=== PATIENT | male | born 1980 | race Caucasian/White ===

== ENCOUNTER 2024-08-06 08:39 | Emergency (ER) | payer BC, SELFPAY ==
[2024-08-06 08:40] VITALS: BP 149/94; PULSE 76; RESP 17; TEMP 36.4; O2SAT 100
--- NOTE | 2024-08-06 08:45 | DI.RAD_ITS ---
Exam(s) XR THUMB RT EXAM: XR THUMB RT CLINICAL HISTORY: Laceration. TECHNIQUE: 2D digital imaging was performed of the right finger. Three views were obtained. PA/AP, oblique, and lateral views were obtained. COMPARISON: No exams were available for comparison FINDINGS: BONES: No acute fracture is present. No bony destructive lesion is seen. JOINTS: No dislocation present. SOFT TISSUE: No radiopaque foreign bodies or soft tissue gas is seen. IMPRESSION: No evidence of acute fracture or dislocation. DATA REPOSITORY: RADIATION DOSE DELIVERED:
[2024-08-06] MEDS: Lidocaine/Epinephri/Tetracaine Topical Gel 3 ML TP (08:54)
[2024-08-06] MEDS: Ibuprofen 600 MG TAB PO (08:54)
[2024-08-06] MEDS: Acetaminophen 500 MG TAB 1000 MG PO (08:54)
--- NOTE | 2024-08-06 09:15 | ED.GENADUL_ITS ---
Discharge Plan Disposition Patient Disposition: Home Discharge Details Clinical Impression: Laceration of right thumb Primary Care Provider: [facility] ED Provider: Yobani Graff Home Meds and New Rx's Prescriptions: Continued citalopram [Celexa] 10 mg tablet 10 mg PO DAILY Discharge Instructions Instructions: Laceration Repair With Stitches ED Additional Instructions: You were seen in the emergency department for your right thumb laceration laceration which was closed with sutures that will need to be removed in 7 to 10 days. As we discussed, please keep your wound clean, dry and covered. Please do not soak in a tub, swim or engage in any activities which could introduce dirt into your wound. You may return to the emergency department, go to urgent care or go to your primary care provider in 7 to 10 days to have your stitches removed. As we discussed if you develop any foul-smelling drainage fevers streaking signs of infection or have any other concerns please return to the emergency department. For your pain please take medications as follows: 1. Take acetaminophen (Tylenol), 1,000 mg (two 500 mg tabs) every 6 hours [2. Take ibuprofen (Advil), 400 mg every 6 hours.] Discharge Data Discharge Date/Time-TO BE ENTERED AT DEPARTURE: 08/06/24 10:12 HPI General Date/Time Provider Initiated Documentation: 08/06/24 08:46 . HPI Narrative: MDM This is a previously healthy 44-year-old afebrile and not tachycardic righ [id number]-wkoggpmf male with right thumb laceration for which we will obtain x-ray to assess for foreign body prior to primary closure. No pain out of proportion to suggest necrotizing soft tissue infection. Patient reports tetanus is up-to-date. Patient has intact range of motion in his right thumb so I am not concerned for ligamentous injury. No fluctuance to suggest abscess. Patient and I discussed return indications including any foul-smelling drainage any fevers any streaking signs of infection. He understood his return indications and was discharged with empiric trial of expectant outpatient management. I advised ED return to urgent care follow-up for PCP follow-up in 7 to 10 days for suture removal. See procedure note for laceration repair. HPI This is a irlom-bowt-wkahgndg 44-year-old previously healthy male right emergency department via private vehicle in the setting of a laceration to his right thumb. Patient was reportedly sharpening a pair skis this morning. He reports his tetanus is up-to-date. He inadvertently slipped and lacerated his right thumb. He is able to control the bleeding with pressure. He did not pass out. He is not anticoagulated. Denies any other injuries. [facility] usual state of health. Exam General: Well-appearing in no acute distress speaking in complete sentences. Head: Normocephalic, atraumatic. Eye: Extraocular eye movements intact. No conjunctival injection. No scleral icterus. Ear, nose, mouth, throat: Grossly normal inspection. Normal voice, handling secretions normally. Neck: Trachea midline. Cardiovascular: Well-perfused distal extremities. Respiratory: Nonlabored respiration. Gastrointestinal: Nondistended abdomen. Musculoskeletal: On the right thumb primarily radial aspect there is an approximately 2 x 2 cm crescentic avulsion with minor venous oozing. Laceration was irrigated with tap water. LET was applied. Skin: Normal for age and race, grossly normal temperature and turgor. No acute rash. Neurologic: Alert and appropriate, no apparent acute deficits. GCS 15. Psychiatric: Mood and manner are appropriate. Grooming and personal hygiene are appropriate. Related Data Home Medications ?Medication ?Instructions ?Recorded ?Confirmed citalopram 10 mg tablet (Celexa) 10 mg PO DAILY 08/06/24 08/06/24 Allergies Allergy/AdvReac Type Severity Reaction Status Date / Time No Known Allergies Allergy Unverified 08/06/24 08:46 General Stated Complaint: Laceration KALPANA: 4 Course Vital Signs Vital signs: Vital Signs Temperature 36.4 C L 08/06/24 08:40 Pulse 76 08/06/24 08:40 Respiratory Rate 17 08/06/24 08:40 Blood Pressure 149/94 H 08/06/24 08:40 Pulse Oximetry 100 08/06/24 08:40 Temperature 36.4 C L 08/06/24 08:40 Temperature Source Temporal Artery Scan 08/06/24 08:40 Pulse 76 08/06/24 08:40 Respiratory Rate 17 08/06/24 08:40 Blood Pressure 149/94 H 08/06/24 08:40 Blood Pressure Position Sitting 08/06/24 08:40 Pulse Oximetry 100 08/06/24 08:40 Oxygen Delivery Method Room Air 08/06/24 08:40 Oxygen Flow Rate 0 08/06/24 08:40 Pain Level 3 08/06/24 08:58 Procedure Laceration Laceration 1: Date of Procedure: 08/06/24 Time of procedure: 09:55 Provider that performed the procedure: Yobani Graff Standard Time Out Performed: No Patient Consented: Verbally Site: hand Side (If applicable): right Description: flap Depth: simple, single layer Local anesthetic: Lidocaine 1% and LET(lidocaine epinephrine tetracaine) Amount of anesthesia used (mL): 5 Pre-repair:: wound explored, irrigated extensively and deep structures intact Skin layer closed with: nylon Suture size: 5-0 Number of sutures:: 3 Technique: simple, interrupted Procedure Description/Note: Over the tip of the avulsion I placed a small amount of cyanoacrylate glue Medical Decision Making Quality:SDOH Health Related Social Needs: No Data to Display PFSH All Active Problems (Updated 08/06/24 @ 09:57 by Yobani Graff MD) Laceration of right thumb (Acute) Social History Smoking/Tobacco Use Status: Never Smoking risk assessment performed?: Yes Alcohol Intake: current Drug use: Daily Substance use type: marijuana Housing: house [facility] Have you Been Recently Intoxicated or Drunk Within the Last 30 days?: No Have you Ever Experienced Previous Episodes of Alcohol Withdrawal?: No Have you ever Experienced Withdrawal Seizures?: No Have you ever Experienced Delirium Tremens(DT)s?: No Have you ever undergone Alcohol Rehabilitation Treatment (i.e, inpt ot outpatient treatment programs)?: No Have you ever Experienced Blackouts?: No Have you ever Combined Alcohol with other Downers within the last 90 days?: No Have you ever Combined Alcohol with any other Substance of Abuse during the last 90 days?: No Result: 0
--- NOTE | 2024-08-06 10:00 | DI.VRAD_ITS ---
PROCEDURE INFORMATION: Exam: XR Right Finger(s) Exam date and time: 08/06/2024 9:20 AM Age: 44 years old Clinical indication: Other: Laceration TECHNIQUE: Imaging protocol: Radiologic exam of the right fingers. Views: Minimum 2 views. COMPARISON: No relevant prior studies available. FINDINGS: Bones/joints: No acute fracture Soft tissues: Mild soft tissue swelling. IMPRESSION: No evidence of acute fracture. Dictated and Authenticated by: Jenny Conley MD. Orderin Dajuan Hilton MD
[2024-08-06] MEDS: Lidocaine 2% Multi-Dose 20 ML VIAL IJ (10:12)
== END 2024-08-06 10:12 | disposition home or self-care (01) ==
PROVIDERS: Emergency Provider Emergency Medicine
DX: S61.011A Laceration without foreign body of right thumb without damage to nail, initial encounter (principal); W26.8XXA Contact with other sharp object(s), not elsewhere classified, initial encounter; Y93.89 Activity, other specified
CPT/HCPCS: 12001; 99283; 73140; J2003